=== PATIENT | female | born 1940 | race Caucasian/White ===

== ENCOUNTER 2016-10-03 15:36 | Emergency (ER) | payer OTHER ==
[~2016-10-03] VITALS: Ht 160 cm; Wt 62.1 kg
[2016-10-03 15:36] VITALS: BP_SYST 150
--- NOTE | 2016-10-03 15:36 | NUR ---
BROUGHT BACK TO BED #4 AND TRIAGED. REPORT GIVEN TO FERNANDO
--- NOTE | 2016-10-03 15:40 | NUR ---
ER at bedside examining patient.
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
--- NOTE | 2016-10-03 16:20 | NUR ---
Patient transported to radiology via GURNEY, accompanied by CT STAFF.
--- NOTE | 2016-10-03 16:35 | NUR ---
PT RETURNED FROM CT SCAN. PT TOLERATED WELL.
[2016-10-03] MEDS ORDERED: KETOROLAC TROMETHAMINE 30 MG VIAL IM ONE (17:00)
--- NOTE | 2016-10-03 17:15 | NUR ---
PT TOLERARTED MEDICATION WELL.
[2016-10-03 18:00] VITALS: BP_SYST 148
--- NOTE | 2016-10-03 18:37 | NUR ---
Patient given written and verbal discharge instructions and verbalizes understanding. ER MD discussed with patient the results and treatment provided. Given copies of tests performed in ER. Patient in stable condition. ID arm band removed. Patient educated on pain management and to follow up with PMD. Pain Scale 2. Opportunity for questions provided and answered.
== END 2016-10-03 18:00 | disposition home or self-care (01) ==
LOC: SED 15:36
DX: S16.1XXA Strain of muscle, fascia and tendon at neck level, initial encounter (principal); S20.20XA Contusion of thorax, unspecified, initial encounter; S09.90XA Unspecified injury of head, initial encounter; I10 Essential (primary) hypertension; Z88.1 Allergy status to other antibiotic agents; V53.5XXA Driver of pick-up truck or van injured in collision with car, pick-up truck or van in traffic accident, initial encounter; Y93.89 Activity, other specified; Y92.410 Unspecified street and highway as the place of occurrence of the external cause; Y99.8 Other external cause status
CPT/HCPCS: 70450; 71250; 72125; 96372; 99284; J1885